=== PATIENT | female | born 1955 | race Two or more races ===

== ENCOUNTER 2024-03-25 16:26 | Emergency (ER) | payer OTHER ==
[~2024-03-25] VITALS: Ht 152.4 cm; Wt 61.2 kg
[2024-03-25] MEDS ORDERED: GLUMETZA500 MG PO (16:52)
[2024-03-25] MEDS ORDERED: ZYRTEC10 M3 PO (16:52)
[2024-03-25] MEDS ORDERED: ADULT LOW DOSE81 M1 PO (16:53)
[2024-03-25] MEDS ORDERED: PROTONIX40 MG PO (16:53)
[2024-03-25] MEDS ORDERED: KETOROLAC TROMETHAMINE 30 MG VIAL IM STA (17:53)
[2024-03-25 18:24] LABS: HEMATOCRIT 37.6 % (36.0-45.00); HEMOGLOBIN 12.5 g/dL (12.0-15.00); MEAN CELL VOLUME 87.5 fL (80.00-100.00); MEAN CORPUSCULAR HEMOGLOBIN 29.1 pg (27.00-32.0); MEAN CORPUSCULAR HGB CONC 33.3 g/dl (32.0-36.0); PLATELET COUNT 242 K/uL (150-450); RED CELL DISTRIBUTION WIDTH 14.1 % (11.5-14.5)
[2024-03-25 18:47] LABS: ALBUMIN 4.3 gm/dL (3.4-5.0); BILIRUBIN TOTAL 0.4 mg/dL (0.3-1.2); CREATININE SERUM 0.95 mg/dL (0.55-1.02); GFR 58.15; GLOBULINA 3.1 G/DL (2.4-3.5); POTASSIUM 4.39 mEq/L (3.5-5.1); TOTAL PROTEIN 7.4 gm/dL (6.4-8.2)
[2024-03-25] MEDS ORDERED: IBU600 MG PO (19:21)
[2024-03-25] MEDS ORDERED: ZITHROMAX200 MG PO (19:21)
== END 2024-03-25 20:30 | disposition home or self-care (01) ==
LOC: ER 16:27
PROVIDERS: General Practice
DX: R53.81 Other malaise (principal); R59.0 Localized enlarged lymph nodes; H66.91 Otitis media, unspecified, right ear; R00.2 Palpitations; Z88.0 Allergy status to penicillin
CPT/HCPCS: 36415; 96372; 99282; J1885